=== PATIENT | female | born 1960 | race Caucasian/White ===

== ENCOUNTER 2022-09-03 09:48 | Outpatient (CLI) | payer BC, MEDICAID, SELFPAY ==
--- NOTE | 2022-09-03 10:01 | USCV_ITS ---
Karissa Palacio Age: 62 Gender: F : 1960 Exam Date: 09/03/2022 10:21 Ordering Phys: Dario Curran Technologist: CT Exam Location: [facility] [place]_ Indication: hyperlipidemia Risk Factors: Previous Vascular Surgery: Right Brachial BP: / Left Brachial BP: / Right Left Velocity (cm/s) Spectral Plaque Velocity (cm/s) Spectral Plaque Syst/Diast Broadening Syst/Diast Broadening 103.60/34.20 Prox CCA 54.20 / 20.70 77.00/ 26.00 Mid CCA 64.90 / 22.10 72.80/ 26.00 Distal CCA 56.50 / 21.80 60.00/ 20.60 Prox ICA 59.80 / 20.70 65.80/ 20.20 Mid ICA 62.10 / 18.50 84.00/ 30.40 Distal ICA 79.90 / 37.20 85.30 ECA 64.30 0.81 ICA/CCA 1.23 Antegrade Vertebral Antegrade 68.80/ 26.30 cm/s 37.20/ 13.90 cm/s Bi Subclavian Bi 84.00 90.20 CONCLUSIONS Right ICA stenosis <50%. Left ICA stenosis <50%. Normal antegrade Doppler flow noted in the right vertebral artery. Normal antegrade Doppler flow noted in the left vertebral artery. Jg Deluna MD (Electronically Signed) Final Date: 03 Sep 2022 13:35 S
== END 2022-09-03 09:49 | disposition home or self-care (01) ==
LOC: RAD 09:54
PROVIDERS: PCP Nurse Practitioner Family; Visit Provider Nurse Practitioner Family
DX: E78.5 Hyperlipidemia, unspecified (principal)
CPT/HCPCS: 93880